=== PATIENT | male | born 1990 | race Two or more races ===

== ENCOUNTER 2025-06-30 16:39 | Emergency (ER) | payer MEDICAID, OTHER ==
[~2025-06-30] VITALS: Ht 182.9 cm; Wt 90.7 kg
[2025-06-30] MEDS ORDERED: CYCLOBENZAPRINE 10 MG TABLET ONE (17:03)
[2025-06-30] MEDS ORDERED: KETOROLAC TROMETHAMINE INJ 30 MG/ML VIAL ONE (17:03)
[2025-06-30] MEDS: KETOROLAC TROMETHAMINE INJ 30 MG/ML VIAL IM ONE (17:10)
[2025-06-30] MEDS: CYCLOBENZAPRINE 10 MG TABLET PO ONE (17:11)
[2025-06-30] MEDS: HYDROCODONE/APAP 5/325MG TABLET PO ONE ×2 (18:52→19:38)
[2025-06-30] MEDS ORDERED: HYDROCODONE/APAP 5/325MG TABLET ONE (19:31)
[2025-06-30] MEDS ORDERED: HYDR-4209 PO (20:48)
[2025-06-30 21:14] VITALS: BP 140/80; TEMP 98; O2SAT 96
== END 2025-06-30 21:14 | disposition home or self-care (01) ==
LOC: ER 16:41
DX: M54.50 Low back pain, unspecified (principal)
CPT/HCPCS: 99285; 72131; 96372; J1885